=== PATIENT | male | born 1970 | race Two or more races ===

== ENCOUNTER 2022-07-01 03:14 | Emergency (ER) | payer SELFPAY ==
[~2022-07-01] VITALS: Ht 165.1 cm; Wt 72.7 kg
[2022-07-01 03:20] VITALS: BP 141/81
[2022-07-01] MEDS ORDERED: METF-1211 PO (03:25)
== END 2022-07-01 04:28 | disposition left against medical advice (07) ==
LOC: EMS 03:16
DX: Z53.21 Procedure and treatment not carried out due to patient leaving prior to being seen by health care provider (principal)
CPT/HCPCS: 99281; Z7502

== ENCOUNTER 2023-03-03 12:06 | Emergency (ER) | payer MEDICAID ==
[~2023-03-03] VITALS: Ht 175.3 cm; Wt 72.7 kg
[~2023-03-03 12:06] MED LIST: METF-1211 PO
[2023-03-03 12:08] VITALS: TEMP 97.9
[2023-03-03] MEDS ORDERED: SODIUM CHLORIDE 0.9% 1,000 ML IV ONE (12:30)
[2023-03-03] MEDS ORDERED: METF-1211 PO (12:32)
[2023-03-03 12:55] VITALS: BP 144/98; PULSE 64; RESP 16
[2023-03-03 13:07] LABS: ANION GAP 7 mmol/L (8-16); CALCIUM, TOTAL 8.7 mg/dL (8.8-10.5); CARBON DIOXIDE 31 mmol/L (22-29); CHLORIDE 97 mmol/L (98-107); CREATININE 0.82 mg/dL (0.60-1.30); GLOMERULAR FILTR. RATE CALC > 60 mL/min (>60); POTASSIUM 4.2 mmol/L (3.5-5.1); SODIUM SERUM 135 mmol/L (136-145); UREA NITROGEN, BLOOD 13 mg/dL (7-18)
[2023-03-03 13:11] LABS: GLUCOSE,RANDOM 426 mg/dL (70-110)
[2023-03-03] MEDS ORDERED: INSULIN REGULAR, HUMAN 100 UNITS/ML IVP ONE (13:30)
[2023-03-03 13:36] LABS: GLUCOMETER DEV NAME(LOC) ER.6; GLUCOSE,POINT OF CARE 409 MG/DL (70-110)
[2023-03-03 14:36] LABS: GLUCOMETER DEV NAME(LOC) ER.6; GLUCOSE,POINT OF CARE 302 MG/DL (70-110)
== END 2023-03-03 14:28 | disposition home or self-care (01) ==
LOC: EMS 12:06
DX: E11.65 Type 2 diabetes mellitus with hyperglycemia (principal); F17.210 Nicotine dependence, cigarettes, uncomplicated
CPT/HCPCS: 99283; 96374; 96361; 80048; 36415; 82962; J1815; J7030